=== PATIENT | female | born 1980 | race Two or more races ===

== ENCOUNTER 2019-11-04 15:40 | Emergency (ER) | payer MEDICARE, OTHER ==
[~2019-11-04] VITALS: Ht 165.1 cm; Wt 65.8 kg
[2019-11-04 16:25] VITALS: BP 134/74
[2019-11-04] MEDS ORDERED: HYDROCODONE/APAP 5/325MG 1 EACH TABLET PO ONE (17:00)
[2019-11-04] MEDS ORDERED: HYDROCODONE/APAP 5/325MG 1 EACH TABLET ONE (18:35)
== END 2019-11-04 18:53 | disposition home or self-care (01) ==
LOC: ER 15:45
DX: M25.511 Pain in right shoulder (principal); M62.838 Other muscle spasm; N18.6 End stage renal disease; Z85.038 Personal history of other malignant neoplasm of large intestine; V43.52XA Car driver injured in collision with other type car in traffic accident, initial encounter; Y93.89 Activity, other specified; Y92.413 State road as the place of occurrence of the external cause; Y99.8 Other external cause status
CPT/HCPCS: 73030-TC